=== PATIENT | female | born 1940 | race Caucasian/White ===

== ENCOUNTER 2023-12-23 07:56 | Inpatient (IN) ==
--- NOTE | 2023-12-11 13:25 | PAT Medication Instructions ---
Medication Instructions Date of Service December 11, 2023 Home Medications Brilinta 1 tab PO BID aspirin 81 mg capsule 81 mg PO QPM atorvastatin 40 mg tablet 40 mg PO HS cholecalciferol (vitamin D3) 1,250 mcg (50,000 unit) capsule 125 mcg PO Q7D clopidogrel 75 mg tablet 75 mg PO QPM cyanocobalamin (vitamin B-12) 1,000 mcg tablet (Vitamin B-12) 1,000 mcg PO QPM empagliflozin 25 mg tablet (Jardiance) 25 mg PO QPM latanoprost (PF) 0.005 % eye drops in a dropperette 1 drp ophthalmic (eye) QAM levothyroxine 75 mcg tablet 75 mcg PO QPM lisinopril 20 mg tablet 20 mg PO QPM semaglutide 0.25 mg or 0.5 mg (2 mg/3 mL) subcutaneous pen injector (Ozempic) 0.5 mg subcut Q7D timolol 0.5 % eye drops 1 drp ophthalmic (eye) HS venlafaxine 225 mg tablet,extended release 24 hr 225 mg PO QPM vitamin A-vitamin C-vit E-min tablet 1 tab PO DAILY Continue as directed cholecalciferol (vitamin D3) 1,250 mcg (50,000 unit) capsule 125 mcg PO Q7D (just do not take on morning of surgery) ASK your prescriber and surgeon Brilinta 1 tab PO BID aspirin 81 mg capsule 81 mg PO QPM clopidogrel 75 mg tablet 75 mg PO QPM STOP taking 2 weeks before surgery (or as soon as possible) vitamin A-vitamin C-vit E-min tablet 1 tab PO DAILY STOP taking 7 days before surgery semaglutide 0.25 mg or 0.5 mg (2 mg/3 mL) subcutaneous pen injector (Ozempic) 0.5 mg subcut Q7D STOP taking 3 days before surgery empagliflozin 25 mg tablet (Jardiance) 25 mg PO QPM Take morning of surgery OTHERWISE NOTHING TO EAT OR DRINK AFTER MIDNIGHT: latanoprost (PF) 0.005 % eye drops in a dropperette 1 drp ophthalmic (eye) QAM Take evening before surgery atorvastatin 40 mg tablet 40 mg PO HS cyanocobalamin (vitamin B-12) 1,000 mcg tablet (Vitamin B-12) 1,000 mcg PO QPM levothyroxine 75 mcg tablet 75 mcg PO QPM lisinopril 20 mg tablet 20 mg PO QPM timolol 0.5 % eye drops 1 drp ophthalmic (eye) HS venlafaxine 225 mg tablet,extended release 24 hr 225 mg PO QPM Other Notes If you have any questions please call us at [phone] or [phone] or [phone] or [phone]
--- NOTE | 2023-12-12 12:48 | Anesthesiology Consultation ---
Date of Service December 12, 2023 Assessment & Plan (1) Encounter for pre-operative examination: - awaiting echocardiogram. - 2/6 systolic murmur and patient reporting intermittent episodes of presyncope per pt. Denies symptoms in clinic, states is at baseline. She states has been t old of murmur years ago, denies any recent echocardiogram in the past 5-6 years and none available per PAT RN secretary book keeper. Patient and her were instructed to call 911 if change/worsening. They verbalized understanding and agreement. Case discussed in detail with Dr. Matthew who advised attempting to have echocardiogram completed prior to surgery. Surgeon's office notified of recommended attempt to have echocardiogram completed prior to surgery, Guillermo advised pt was in fact supposed to have echocardiogram 12/12/23 but did not show for appt. Their office is going to call her to re-schedule this prior to surgery. - check BSG am DOS. - will request Dr. Jorden Villegas PCP office note 10/2023, Kylie SORIA and Dr. Cardona cardiology office note 10/2023 PH Kylie. - semaglutide instructions: Patient informed at PAT visit to stop 7 days prior to surgery-voiced understanding. Patient advised to check with prescriber to see if alternative diabetic management changes recommended while holding semaglutide-if so, patient to call back to PAT to update chart and discuss if any further preop medication instructions needed. Chart Review Chart Review: Pending: Refer to Additional Notes / Consult section and Patient seen in Pre Admission Testing Teaching & Discussion Pre-Anesthesia Teaching/Discussion Notes: Instructed NPO after midnight before surgery, except medications with 15 cc of water. Medication instructions provided according to the PAT guidelines. History Surgery Operation Date: 12/23/23 08:00 Proposed Procedures p Right Transcarotid Artery Revascularization - Ricco Carvajal MD Height/Weight Height: 5 ft 3 in Weight: 71.8 kg Allergies Allergy/AdvReac Type Severity Reaction Status Date / Time No Known Allergies Allergy Verified 12/11/23 10:55 Medications Home Medications Medication Instructions Recorded Confirmed Last Taken Brilinta 1 tab PO BID 12/11/23 12/11/23 Unknown aspirin 81 mg capsule 81 mg PO QPM 12/11/23 12/11/23 Unknown atorvastatin 40 mg tablet 40 mg PO HS 12/11/23 12/11/23 Unknown cholecalciferol (vitamin D3) 1,250 125 mcg PO Q7D 12/11/23 12/11/23 Unknown mcg (50,000 unit) capsule clopidogrel 75 mg tablet 75 mg PO QPM 12/11/23 12/11/23 Unknown cyanocobalamin (vitamin B-12) 1,000 mcg PO QPM 12/11/23 12/11/23 Unknown 1,000 mcg tablet (Vitamin B-12) empagliflozin 25 mg tablet 25 mg PO QPM 12/11/23 12/11/23 Unknown (Jardiance) latanoprost (PF) 0.005 % eye drops 1 drp ophthalmic (eye) QAM 12/11/23 12/11/23 Unknown in a dropperette levothyroxine 75 mcg tablet 75 mcg PO QPM 12/11/23 12/11/23 Unknown lisinopril 20 mg tablet 20 mg PO QPM 12/11/23 12/11/23 Unknown semaglutide 0.25 mg or 0.5 mg (2 0.5 mg subcut Q7D 12/11/23 12/11/23 Unknown mg/3 mL) subcutaneous pen injector (Ozempic) timolol 0.5 % eye drops 1 drp ophthalmic (eye) HS 12/11/23 12/11/23 Unknown venlafaxine 225 mg tablet,extended 225 mg PO QPM 12/11/23 12/11/23 Unknown release 24 hr vitamin A-vitamin C-vit E-min 1 tab PO DAILY 12/11/23 12/11/23 Unknown tablet Past Medical History Medical History (Updated 12/12/23 @ 13:07 by Jina Dumont PA-C) Anxiety and depression Carotid artery stenosis high-grade stenosis (greater than 75%) involving the origin and proximal ri ght internal carotid artery with focal near complete occlusion/trace flow. Diabetes mellitus, type 2 NIDDM GERD (gastroesophageal reflux disease) infrequent Glaucoma History of COVID-19 09/2023, home test, not hosp; mild symptoms>resolved Hx of angiography [facility] [address] Hyperlipidemia Hypertension controlled, stable per pt Hypothyroidism Patient denies h/o stroke, seizures, heart attack, heart failure, blood clots/DVTs or blood transfusions. Exercise / Class Metabolic Activity II 4-5 Yardwork/Stairs/Walk up hill (denies chest discomfort or shortness of breath with 1 FOS) Past Surgical History Surgical History (Updated 12/12/23 @ 13:00 by Jina Dumont PA-C) [facility] History of surgical procedure on eye proper using laser Hx of cholecystectomy Hx of colonoscopy Hx of hysterectomy Past Anesthesia History No Hx of Anesthesia Complications and No Family Hx of Anesthesia Complications History of PONV No Hx of PONV and No Hx of Motion Sickness Social History Smoking Status: Never smoker Do You Dip or Chew Tobacco: No Hx Alcohol Use: Yes Alcohol type: beer alcohol intake frequency: holidays/special occasions only Hx Substance Use: No substance use type: does not use Review of Systems Snoring, denies witnessed apneas. Patient denies chest pain, shortness of breath, dyspnea on exertion, fever, chills, cough, wheezing, or palpitations. Physical Exam Vital Signs Vitals BP 112/73 P 62 TEMP 97.8 SP02 98% on RA RESP 17 Physical Patient resting comfortably in chair in no acute distress, alert and oriented, responding appropriately throughout visit Full cervical extension range of motion without pain TMD 3.5 finger breadths Mallampati Score 2 Dentition: edentulous, full upper and lower dentures Lungs: normal respiratory effort. Good air movement, clear throughout to ausc ultation, no adventitious breath sounds Cardiac: regular rate and rhythm, 2/6 systolic murmur Carotid arteries: negative bruit bilat Lab Results Anesthesia Preop Results Results Anesthesia Widget: WBC 6.00 K/ul (4.8-10.8) 12/12/23 Hgb 14.2 g/dl (12.0-16.0) 12/12/23 Hct 44.4 % (37.0-47.0) 12/12/23 Plt 227 K/uL (130-400) 12/12/23 Na 138 mmol/L (136-145) 12/12/23 K 4.2 mmol/L (3.5-5.1) 12/12/23 Cl 104 mmol/L (98-107) 12/12/23 CO2 29 mmol/L (21-32) 12/12/23 BUN 14 mg/dl (6-23) 12/12/23 Creat 0.69 mg/dl (0.6-1.2) 12/12/23 Glucose Level 122 mg/dl (70-99(Fasting)) H 12/12/23 PT 10.8 Seconds (9.0-12.0) 12/12/23 PTT 26 Seconds (21-31) 12/12/23 INR 1.0 (0.9-1.1) 12/12/23 HA1c 6.2 % (4.5-5.6) H 12/12/23 Blood Type O Positive 12/12/23 Antibody Screen NEGATIVE 12/12/23 Testing Electrocardiogram Date: 12/12/23 NSR, rate 60 bpm Chest X-Ray Date: 12/12/23 No acute cardiopulmonary findings. Other Testing Neck CTA 11/29/23 1. There is high-grade stenosis (greater than 75%) involving the origin and proximal right internal carotid artery with focal near complete occlusion/trace flow. 2. The remainder of the right internal carotid artery is patent. 3. There is no stenosis seen involving the left carotid system. 4. There is moderate focal stenosis at the origin of the right vertebral artery.
--- OUTSIDE RECORDS SUMMARY | 2023-12-23 08:16 | External Medical Summary | Continuity of Care Document ---
Author Name Unknown Organization [facility] [address] [facility] Address [address], [place] [id number] Care Team Providers Care Mathematics Improvement Teacher Name Role Phone Jorden Villegas Primary Care Physician [phone] Encounter [id number] Date(s): 12/16/23 - 12/16/23 [facility] [address], [address] [place] [address] [phone] Discharge Disposition: Home or Self Care Attending Physician: ALONA Lockhart Lynn Referring Physician: ALONA Lockhart Lynn Allergies, Adverse Reactions, Alerts No Known Allergies Medications aspirin 81 mg oral delayed release tablet Start: 06/26/23 10:13:00 EDT, 1 tab, PO, Daily Start Date: 06/26/23 Status: Ordered atorvastatin 40 mg oral tablet Start: 06/26/23 10:10:00 EDT, 1 tab, PO, Daily Start Date: 06/26/23 Status: Ordered Brilinta (ticagrelor) 90 mg oral tablet Start: 12/10/23 14:37:00 EST, 1 tab, PO, bid, Disp# 60 tab, Refills: 11, Pharmacy: [id number] Start Date: 12/10/23 Status: Ordered Jardiance 25 mg oral tablet Start: 06/26/23 10:10:00 EDT, 1 tab, PO, Daily, Disp# 30 tab Start Date: 06/26/23 Status: Ordered latanoprost 0.005% ophthalmic solution Start: 06/26/23 10:11:00 EDT, 1 drop, both eyes, qhs Start Date: 06/26/23 Status: Ordered levothyroxine 75 mcg (0.075 mg) oral tablet 1 tab, PO, Daily, TAKE 1 TABLET BY MOUTH ONCE DAILY Start Date: 06/26/23 Status: Ordered lisinopril 20 mg oral tablet TAKE 1 TABLET BY MOUTH ONCE DAILY Start Date: 06/26/23 Status: Ordered Ocuvite oral tablet Start: 06/26/23 10:13:00 EDT, 1 tab, PO, Daily Start Date: 06/26/23 Status: Ordered Ozempic (0.25 mg or 0.5 mg dose) 2 mg/3 mL subQ pen Start: 06/26/23 10:10:00 EDT, See Instructions, subQ, q7days, Disp# 3 mL, Inject 0.25 mg every 7 days X 4 weeks then increase to 0.5 mg SQ every 7 days., Supply Start Date: 06/26/23 Status: Ordered pantoprazole 20 mg oral delayed release tablet TAKE 1 TABLET BY MOUTH ONCE DAILY, PRN: dyspepsia Start Date: 12/10/23 Status: Ordered Plavix 75 mg oral tablet Start: 11/11/23 14:16:00 EST, 1 tab, PO, Daily, Disp# 30 tab, Refills: 11, Pharmacy: [id number] Start Date: 11/11/23 Status: Ordered timolol maleate 0.25% ophthalmic solution Start: 06/26/23 10:12:00 EDT, 1 drop, right eye, bid Start Date: 06/26/23 Status: Ordered venlafaxine 150 mg oral capsule, extended release Start: 06/26/23 10:10:00 EDT, 1 cap, PO, Daily Start Date: 06/26/23 Status: Ordered venlafaxine 75 mg oral capsule, extended release Start: 06/26/23 10:11:00 EDT, 1 cap, PO, Daily Start Date: 06/26/23 Status: Ordered Vitamin D3 1250 mcg (50,000 intl units) oral capsule Start: 12/10/23 13:45:00 EST, 1 cap, PO, q7days Start Date: 12/10/23 Status: Ordered vitamin E 200 intl units oral capsule Start: 06/26/23 10:13:00 EDT, 1 cap, PO, Daily Start Date: 06/26/23 Status: Ordered Problem List Condition Confirmation Course Effective Dates Status Health St atus Informant Aortoiliac stenosis Confirmed Active Carotid stenosis Confirmed Active Peripheral arterial disease Confirmed Active Results Radiology Reports * Exam Date Time Procedure Performing Provider Status 3/4/24 4:05 PM Echo TransTHORacic TTE Complete Jessica Varela; Final Notes: (Echo TransTHORacic TTE Complete) Reason For Exam: pre op for R TCAR Echo TransTHORacic TTE Complete Report Signatures Finalized by August Cleveland MD on 12/17/2023 10:36 AM Promoted to Fellow by Dr Gabe Deras DO on 12/17/2023 08:45 AM [place] Act 112: No-No further action needed Summary 1. Small, under-filled left ventricle and hyperdynamic systolic function with no regional wall motion abnormalities. 2. Ejection fraction as calculated by Biplane Simpsons method >70 %. 3. Normal right ventricular size and function. 4. Normal biatrial size. 5. No significant valvular abnormalities. 6. Normal estimated pulmonary artery pressure. 7. No prior studies for comparison. Patient Info Name: SANGEETHA RONQUILLO Age: 83 years : 1940 Gender: Female Ht: 160 cm Wt: 70 kg BSA: 1.79 m2 HR: 58 bpm BP: 130 / 72 mmHg Heart Rhythm: Sinus Bradycardia Technical Quality: Fair Exam Date: 12/16/2023 3:12 PM Exam Location: [facility] Patient Status: Outpatient Staff Ordering Physician: Marilyn Lockhart Business Insight And Analytics Manager: Jessica Varela RDCS, T Attending Physician: Marilyn Lockhart Study Info CPT 87320 - Indications Z01.810 - Preoperative Exam Procedure(s) * A complete two-dimensional, color flow and Doppler transthoracic echocardiogram was performed. Exam Type: Cardiac Basic Left Ventricle Small, under-filled left ventricle and hyperdynamic systolic function with no regional wall motion abnormalities. Ejection fraction as calculated by Biplane Simpsons method >70 %. No left ventricular hypertrophy. Inconclusive data to evaluate diastolic function due to MAC. Right Ventricle Normal right ventricular size and function. TAPSE is normal, 1.7 cm. Left Atrium Normal left atrial size. Right Atrium Normal right atrial size. Atrial Septum The interatrial septum is unremarkable. Aortic Valve Calcified, trileaflet aortic valve without stenosis or valvular insufficiency. Pulmonic Valve Structurally unremarkable pulmonic valve with no significant flow abnormalities. Estimated pulmonary arterial mean pressure 12 mmHg. Mitral Valve There is mitral annular calcification without significant stenosis and trace regurgitation. Tricuspid Valve Structurally normal tricuspid valve. Mild tricuspid regurgitation. Normal estimated pulmonary artery pressure. Pericardium/Pleural No significant pericardial effusion. Inferior Vena Cava Normal IVC size and inspiratory collapse. Aorta Normal size aortic root, ascending aorta and aortic arch. Left Ventricular Outflow Tract Name Value Normal LVOT 2D LVOT Diameter 2.0 cm LVOT Doppler LVOT Peak Velocity 1.48 m/s LVOT Peak Gradient 9 mmHg LVOT Mean Gradient 5 mmHg LVOT VTI 36.73 cm LVOT Stroke Volume 115.53 ml LVOT Stroke Volume Index 0.06 l/m2 LVOT Cardiac Output 6.70 l/min LVOT Cardiac Index 3.75 L/min/m2 Pulmonic Valve Name Value Normal PV 2D RVOT Diameter (2D) 1.6 cm 1.7-2.7 RVOT Doppler RVOT Peak Velocity 0.64 m/s PV Doppler PV Peak Velocity 0.71 m/s PV Regurgitation Doppler FL Peak Velocity 1.52 m/s Mitral Valve Name Value Normal MV Doppler MV Peak Velocity 1.40 m/s MV Peak Gradient 8 mmHg MV Mean Gradient 3 mmHg MV VTI 50.71 cm MV PHT 86 ms MV Area (Cont Eq VTI) 2.3 cm2 MV Area Index (Cont Eq VTI) 1.28 cm2/m2 MV Diastolic Function MV E Peak Velocity 1.34 m/s <=0.50 MV A Peak Velocity 1.43 m/s MV E/A 0.94 <=0.80 MV Decel Time 296 ms MV Annular TDI MV Septal s' Velocity 6.46 cm/s MV Septal e' Velocity 5.57 cm/s >=7.00 MV E/e' (Septal) 24.1 <=8.0 MV Lateral s' Velocity 6.87 cm/s MV Lateral e' Velocity 4.81 cm/s >=10.00 MV E/e' (Lateral) 27.87 <=8.00 MV e' Average 5.19 MV E/e' (Average) 25.97 <=14.00 Tricuspid Valve Name Value Normal TV Regurgitation Doppler TR Peak Velocity 2.42 m/s <=2.80 Estimated PAP/RSVP RA Pressure 3 mmHg <=5 PA Systolic Pressure 26 mmHg <40 PA Mean Pressure (FL Velocity) 12 mmHg TV Diastolic Function TV E Peak Velocity 0.45 m/s TV A Peak Velocity 0.17 m/s TV E/A 2.67 0.80-2.00 TV Decel Time 201 ms >=120 TV Annular TDI TV Lateral Nayla s' Velocity 10.9 cm/s 9.5-18.7 TV Lateral Nayla e' Velocity 14.4 cm/s <7.8 TV E/e' 3.13 2.00-6.00 Aorta Name Value Normal Ascending Aorta Sinus of Valsalva Diameter 2.5 cm 2.7-3.3 Sinus of Valsalva Index 1.38 cm/m2 1.60-2.00 Prox Asc Ao Diameter 3.0 cm 2.3-3.1 Prox Asc Ao Diameter Index 1.69 cm/m2 1.30-1.90 Thoracic Aorta Ao Arch Diameter 2.4 cm Desc Ao Peak Velocity 0.67 m/s Desc Ao Peak Gradient 2 mmHg Venous Name Value Normal IVC/SVC IVC Diameter (Insp 2D) 0.6 cm IVC Diameter (Exp 2D) 1.7 cm <=2.1 IVC Diameter Percent Change (2D) 65 % >=50 Aortic Valve Name Value Normal AV Doppler AV Peak Velocity 1.85 m/s <2.00 AV Peak Gradient 13 mmHg AV Area (Cont Eq Yoan) 2.5 cm2 AV Area Index (Cont Eq Yoan) 1.41 cm2/m2 AV V1/V2 Ratio 0.80 AV Regurgitation 2D LVOT Area 3.1 cm2 Ventricles Name Value Normal LV Dimensions 2D/MM IVS Diastolic Thickness (2D) 1.0 cm 0.6-0.9 LVID Diastole (2D) 3.7 cm 3.3-5.1 LVIW Diastolic Thickness (2D) 0.8 cm 0.6-0.9 LVID Systole (2D) 1.8 cm 2.2-3.5 LVOT Diameter 2.0 cm LV Fractional Shortening/Ejection Fraction 2D/MM LV Fractional Shortening (2D) 50 % 27-45 LV Diastolic Volume (4C MOD) 34 ml LV Diastolic Volume (2C MOD) 34 ml LV Diastolic Volume (BP MOD) 34 ml 46-106 LV Diastolic Volume Index (BP MOD) 18.82 ml/m2 29.00-61.00 LV Systolic Volume (BP MOD) 9 ml 14-42 LV Systolic Volume Index (BP MOD) 5.28 ml/m2 8.00-24.00 LV EF (BP MOD) 72 % 58-69 LV SV (BP MOD) 24.20 ml RV Dimensions 2D/MM RV Basal Diastolic Dimension 3.0 cm 2.5-4.1 TAPSE 1.7 cm >=1.7 Atria Name Value Normal LA Dimensions LA Area (4C) 16.6 cm2 LA Length (4C) 5.2 cm LA Area (2C) 19.2 cm2 LA Length (2C) 5.4 cm LA Volume (4C A-L) 45.37 ml LA Volume (2C A-L) 58.03 ml LA Volume (BP A-L) 53 ml 22-52 LA Volume Index (BP A-L) 29.46 ml/m2 <=34.00 RA Dimensions RA Area (4C) 9.2 cm2 <=18.0 Final Signed by:MD Cristofer, August Trivedi Signed (Electronic Signature):12/16/2023 3:12 p Social History Social History Type Response Smoking Status Never smoked cigaret soraida Sex Female Patient Care team information Care Team Personnel Name: MD Bakari, Jorden Clifford Position: Referring Member Role: Primary Care Provider Address: Address: [address] [place] [id number] Name: ALONA Lockhart Lynn Position: Physician Psychiatric Nurse Exempt - Vasc Surg Member Role: Lifetime Relationship Address: Address: [address] [place] [id number]
--- OUTSIDE RECORDS SUMMARY | 2023-12-23 08:17 | External Medical Summary | Continuity of Care Document ---
Author Name Unknown Organization [facility] [address] [facility] Address [address] [place], [place] [id number] Care Team Providers Care Morning Caregiver Name Role Phone Jorden Villegas Primary Care Physician [phone] [id number] Date(s): 12/10/23 - 12/10/23 [facility] [address], [address] [place] [address] [phone] Encounter Diagnosis Carotid stenosis(Discharge Diagnosis) - 12/10/23 Discharge Disposition: Home or Self Care Attending Physician: MD Carvajal Eugene J Referring Physician: MD Villegas James B Allergies, Adverse Reactions, Alerts No Known Allergies Assessment and Plan Extracted from: Title:Clinical Document Author:ALONA Lockhart Lynn Date:12/10/23 [facility] OUTPATIENT NOTE Name: SANGEETHA ALAS Patient Number: [id number] : 1940 Date of Service: 12/10/2023 Chief Complaint: _Follow-up for carotid stenosis HPI: _Mrs. Alas is an elderly female who presents to Dr. Carvajal vascular surgery clinic today for follow-up appointment after undergoing a CTA of her neck to evaluate her carotid disease. She has a remote history of undergoing a left carotid endarterectomy, and recently had a routine surveillance carotid ultrasound which indicated severe stenosis of her right ICA that had been undiagnosed. She was sent for CTA to better evaluate and returns today for those findings. She continues to deny any symptoms of cerebrovascular insufficiency including amaurosis, extremity weakness numbness or tingling, difficulty speaking or swallowing, facial droop, sudden onset confusion, other complaints. Her CTA of the neck performed at [facility] on 11/29/2023 demonstrates near occlusion of her right ICA, and a widely patent left carotid endarterectomy site. Current Home Meds: (Last Updated 12/10 14:38) aspirin (aspirin 81 mg oral delayed release tablet) 81 mg PO Daily atorvastatin (atorvastatin 40 mg oral tablet) 40 mg PO Daily cholecalciferol (Vitamin D3 1250 mcg (50,000 intl units) oral capsule) 1,250 mcg PO q7days clopidogrel (Plavix 75 mg oral tablet) 1 tab PO Daily empagliflozin (Jardiance 25 mg oral tablet) 25 mg PO Daily latanoprost ophthalmic (latanoprost 0.005% ophthalmic solution) 1 drop both eyes qhs Store intact bottles under refrigeration. Once opened, the container may be stored at room temperature for 6 weeks. Gerardo Crook 06/26 10:12 levothyroxine (levothyroxine 75 mcg (0.075 mg) oral tablet) 75 mcg PO Daily TAKE 1 TABLET BY MOUTH ONCE DAILY lisinopril (lisinopril 20 mg oral tablet) TAKE 1 TABLET BY MOUTH ONCE DAILY multivitamin with minerals (Ocuvite oral tablet) 1 tab PO Daily pantoprazole (pantoprazole 20 mg oral delayed release tablet) PRN: dyspepsia TAKE 1 TABLET BY MOUTH ONCE DAILY semaglutide (Ozempic (0.25 mg or 0.5 mg dose) 2 mg/3 mL subQ pen) subQ q7days Inject 0.25 mg every 7 days X 4 weeks then increase to 0.5 mg SQ every 7 days. ticagrelor (Brilinta (ticagrelor) 90 mg oral tablet) 90 mg PO bid timolol ophthalmic (timolol maleate 0.25% ophthalmic solution) 1 drop right eye bid venlafaxine (venlafaxine 150 mg oral capsule, extended release) 150 mg PO Daily venlafaxine (venlafaxine 75 mg oral capsule, extended release) 75 mg PO Daily vitamin E (vitamin E 200 intl units oral capsule) 200 Int_Unit PO Daily Allergies and Sensitivities: NKA Past Medical History: Problems: Carotid stenosis Aortoiliac stenosis Peripheral arterial disease OBJECTIVE Vitals: Last Updated 12/10/23 13:53 Date Temp BP Location Pulse RR SpO2 Pain 12/10/23 0 12/10/23 122/62 Right Arm 57 95 11/11/23 118/70 Left Arm 89 98 0 Vital Signs are the last 3 documented. No Orthostatic Data Available Height and Weight: Last Updated 06/26/23 10:28 Date BMI Wt(kg) Wt(lb) Method Ht(cm) (ft-in) Method 06/26/23 73.8 162 Standing Scale Heights and Weights are the last 3 documented. Physical Exam Constitutional: In general patient is a healthy-appearing well-nourished well-developed elderly female no distress. She is alert and oriented without any focal deficits. Her head is normocephalic and atraumatic. Her carotids do not demonstrate significant bruit. Her heart is regular, her lungs are decreased lightly but clear. ASSESSMENT: _ PLAN: _ 1 ) _carotid stenosis Patient is essentially asymptomatic from her carotid disease, however she does have a near occlusion of her right ICA which does put her at a significantly increased risk of having a CVA. Due to the findings on CTA, Dr. Carvajal recommends the patient consider undergoing a surgical intervention. We did discuss the options of carotid endarterectomy versus transcarotid artery revascularization, including the risks and benefits and alternatives of each. Patient elects to proceed with a right TCAR. The procedure risks benefits and alternatives were discussed at length with the patient. Her was also present. Patient expresses understanding and agreement to proceed. Patient has been taking Plavix for the past month, as prescribed by Dr. Carvajal, however, she underwent platelet function testing which demonstrated nonresponse to clopidogrel. We will change this medication to Brilinta 90 mg twice daily in preparation for her upcoming procedure. We discussed with the patient that she must take her 81 mg aspirin, Brilinta, and statin medications for at least 1 year postoperatively. We will have her undergo an echocardiogram, although the patient has no significant cardiac history. Patient is advised to call our office if she has any further questions. She is agreeable to this plan. Thank you for letting us participate in the care of this patient. I have personally spent_38__ minutes performing [id number] and [id number]-kp-face activities on this date of service.Time does not include separately reported services. Activities Include: _x_ review of the medical record _x_ obtaining a history _x_ physical exam/evaluation x__ review labs _x_ review radiology reports _x_ counseling/educating patient/family/caregiver __ discussion/referral to other healthcare professional x__ documenting care in the medical record __ independent interpretation of results _x_ communication of results to patient/family/caregiver _x_ coordination of care Medications aspirin 81 mg oral delayed release tablet Start: 06/26/23 10:13:00 EDT, 1 tab, PO, Daily Start Date: 06/26/23 Status: Ordered atorvastatin 40 mg oral tablet Start: 06/26/23 10:10:00 EDT, 1 tab, PO, Daily Start Date: 06/26/23 Status: Ordered Brilinta (ticagrelor) 90 mg oral tablet Start: 12/10/23 14:37:00 EST, 1 tab, PO, bid, Disp# 60 tab, Refills: 11, Pharmacy: [id number] Start Date: 12/10/23 Status: Ordered Jardiance 25 [...] Daily, Disp# 30 tab, Refills: 11, Pharmacy: [id number] Start Date: 11/11/23 Status: [...] PO, Daily Start Date: 06/26/23 Status: Ordered Mental Status 12/10/23 Barriers to Learning one year None evide nt Mandatory Health Literacy Documentation Yes Health Literacy Communication Barriers N ever Primary Language Canadian Problem List Condition Confirmation Course Effective Dates Status Health St atus Informant Aortoiliac stenosis Confirmed Active Carotid stenosis Confirmed Active Peripheral arterial disease Confirmed Active Diagnosis Diagnosis Type Effective Dates Health Status Cl inical Service Informant Carotid stenosis Discharge Diagnosis 12/10/23 Vital Signs Most recent to oldest [Reference Range]: 1 Heart Rate 57 bpm (12/10/23 1:49 PM) Blood Pressure 122/62mmHg (12/10/23 1:49 PM) Cuff Pulse Pressure 60 mmHg (12/10/23 1:49 PM) BP Location # 1 Right Arm (12/10/23 1:49 PM) Social History Social History Type Response Smoking Status Never smoked cigaret soraida Sex Female HVI Outpt Note * ALONA Lockhart Lynn: PERFORM Event Display: HVI Outpt Note Authored Date: [id number] [facility] OUTPATIENT NOTE Name: SANGEETHA ALAS Patient Number: [id number] : 1940 Date of Service: 12/10/2023 Chief Complaint: _Follow-up for carotid stenosis HPI: _Mrs. Alas is an elderly female who presents to Dr. Carvajal vascular surgery clinic today forfollow-up appointment after undergoing a CTA of her neck to evaluate her carotid disease. She has aremote history of undergoing a left carotid endarterectomy, and recently had a routine surveillancecarotid ultrasound which indicated severe stenosis of her right ICA that had been undiagnosed. She was sent for CTA to better evaluate and returns today for those findings. She continues to deny any symptoms of cerebrovascular insufficiency including amaurosis, extremity weakness numbness or tingling, difficulty speaking or swallowing, facial droop, sudden onset confusion, other complaints. Her CTA of the neck performed at [facility] on 11/29/2023 demonstrates near occlusion of her right ICA, and a widely patent left carotid endarterectomy site. Current Home Meds: (Last Updated 12/10 14:38) aspirin (aspirin 81 mg oral delayed release tablet) 81 mg PO Daily atorvastatin (atorvastatin 40 mg oral tablet) 40 mg PO Daily cholecalciferol (Vitamin D3 1250 mcg (50,000 intl units) oral capsule) 1,250 mcg PO q7days clopidogrel (Plavix 75 mg oral tablet) 1 tab PO Daily empagliflozin (Jardiance 25 mg oral tablet) 25 mg PO Daily latanoprost ophthalmic (latanoprost 0.005% ophthalmic solution) 1 drop both eyes qhs Store intact bottles under refrigeration. Once opened, the container may be stored at room temperature for 6 weeks. Gerardo Crook 06/26 10:12 levothyroxine (levothyroxine 75 mcg (0.075 mg) oral tablet) 75 mcg PO Daily TAKE 1 TABLET BY MOUTH ONCE DAILY lisinopril (lisinopril 20 mg oral tablet) TAKE 1 TABLET BY MOUTH ONCE DAILY multivitamin with minerals (Ocuvite oral tablet) 1 tab PO Daily pantoprazole (pantoprazole 20 mg oral delayed release tablet) PRN: dyspepsia TAKE 1 TABLET BY MOUTHONCE DAILY semaglutide (Ozempic (0.25 mg or 0.5 mg dose) 2 mg/3 mL subQ pen) subQ q7days Inject 0.25 mg every 7 days X 4 weeks then increase to 0.5 mg SQ every 7 days. ticagrelor (Brilinta (ticagrelor) 90 mg oral tablet) 90 mg PO bid timolol ophthalmic (timolol maleate 0.25% ophthalmic solution) 1 drop right eye bid venlafaxine (venlafaxine 150 mg oral capsule, extended release) 150 mg PO Daily venlafaxine (venlafaxine 75 mg oral capsule, extended release) 75 mg PO Daily vitamin E (vitamin E 200 intl units oral capsule) 200 Int_Unit PO Daily Allergies and Sensitivities: NKA Past Medical History: Problems: Carotid stenosis Aortoiliac stenosis Peripheral arterial disease OBJECTIVE Vitals: Last Updated 12/10/23 13:53 Date Temp BP Location Pulse RR SpO2 Pain 12/10/23 0 12/10/23 122/62 Right Arm 57 95 11/11/23 118/70 Left Arm 89 98 0 Vital Signs are the last 3 documented. No Orthostatic Data Available Height and Weight: Last Updated 06/26/23 10:28 Date BMI Wt(kg) Wt(lb) Method Ht(cm) (ft-in) Method 06/26/23 73.8 162 Standing Scale Heights and Weights are the last 3 documented. Physical Exam Constitutional: In general patient is a healthy-appearing well-nourished well- developed elderly female no distress. She is alert and oriented without any focal deficits. Her head is normocephalic andatraumatic. Her carotids do not demonstrate significant bruit. Her heart is regular, her lungs are decreased lightly but clear. ASSESSMENT: _ PLAN: _ 1 ) _carotid stenosis Patient is essentially asymptomatic from her carotid disease, however she does have a near occlusion of her right ICA which does put her at a significantly increased risk of having a CVA. Due to the findings on CTA, Dr. Carvajal recommends the patient consider undergoing a surgical intervention. We did discuss the options of carotid endarterectomy versus transcarotid artery revascularization, including the risks and benefits and alternatives of each. Patient elects to proceed with a right TCAR. The procedure risks benefits and alternatives were discussed at length with the patient. Her was also present. Patient expresses understanding and agreement to proceed. Patient has been taking Plavix for the past month, as prescribed by Dr. Carvajal, however, she underwent platelet function testing which demonstrated nonresponse to clopidogrel. We will change this medication to Brilinta 90 mgtwice daily in preparation for her upcoming procedure. We discussed with the patient that she must take her 81 mg aspirin, Brilinta, and statin medications for at least 1 year postoperatively. We will have her undergo an echocardiogram, although the patient has no significant cardiac history. Patient is advised to call our office if she has any further questions. She is agreeable to this plan. Thank you for letting us participate in the care of this patient. I have personally spent_38__ minutes performing [id number]-[id number] and uyg-vqik-qq-face activities on this date of service.Time does not include separately reported services. Activities Include: _x_ review of the medical record _x_ obtaining a history _x_ physical exam/evaluation x__ review labs _x_ review radiology reports _x_ counseling/educating patient/family/caregiver __ discussion/referral to other healthcare professional x__ documenting care in the medical record __ independent interpretation of results _x_ communication of results to patient/family/caregiver _x_ coordination of care Electronic Signature on File CC: Jorden Villegas MD [address] [place] [id number] * Electronically Reviewed/Signed by: Marilyn Lockhart PA-C Author Signature Dt/Tm:12/10/2023 03:53 PM [facility] [address] [place] 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
[2023-12-23] MEDS: ASPIRIN 81 MG ECTAB PO STA (08:35)
[2023-12-23] MEDS: SODIUM CHLORIDE 0.9% 1,000 ML IV SCH (08:36)
[2023-12-23 08:56] LABS: BUN Creatinine Ratio 18.5 (10-20); Calcium 10.1 mg/dl (8.6-10.3); Creatinine Clr Calc Pharmacy 63.4 ml/min; Est GFR (African American) 95.8 ml/min; Est GFR (Non-African American) 82.7 ml/min; Potassium 3.9 mmol/L (3.5-5.1)
[2023-12-23] MEDS ORDERED: LABETALOL HCL IV 5 MG/ML 20ML IV PRN (09:04)
[2023-12-23] MEDS ORDERED: ATROPINE SULFATE 0.1 MG/ML 10ML SYR IV PRN (09:04)
[2023-12-23] MEDS ORDERED: NALOXONE HCL 0.4 MG/1 ML VIAL/CARP IV PRN (09:04)
[2023-12-23] MEDS ORDERED: ONDANSETRON INJ 2 MG/ML 2 ML VIAL IV PRN (09:04)
[2023-12-23] MEDS ORDERED: FLUMAZENIL 0.1 MG/1 ML 10 ML VIAL IV PRN (09:04)
[2023-12-23] MEDS ORDERED: fentaNYL citrate PF 100 MCG/2 ML VIAL IV PRN (09:04)
[2023-12-23] MEDS ORDERED: PROMETHAZINE HCL 6.25 MG in SODIUM CHLORIDE 0.9% 50 ML IV PRN (09:04)
--- NOTE | 2023-12-23 09:21 | History & Physical Report ---
Date of Service December 23, 2023 History of Present Illness Primary Care Provider: Jorden Villegas Name: SANGEETHA ALAS Patient Number: [id number] : 1940 Date of Service: 12/10/2023 Chief Complaint: _Follow-up for carotid stenosis HPI: _Mrs. Alas is an elderly female who presents to Dr. Carvajal vascular surgery clinic today for follow-up appointment after undergoing a CTA of her neck to evaluate her carotid disease. She has a remote history of undergoing a left carotid endarterectomy, and recently had a routine surveillance carotid ultrasound which indicated severe stenosis of her right ICA that had been undiagnosed. She was sent for CTA to better evaluate and returns today for those findings. She continues to deny any symptoms of cerebrovascular insufficiency including amaurosis, extremity weakness numbness or tingling, difficulty speaking or swallowing, facial droop, sudden onset confusion, other complaints. Her CTA of the neck performed at [facility] on 11/29/2023 demonstrates near occlusion of her right ICA, and a widely patent left carotid endarterectomy site. Current Home Meds: (Last Updated 12/10 14:38) aspirin (aspirin 81 mg oral delayed release tablet) 81 mg PO Daily atorvastatin (atorvastatin 40 mg oral tablet) 40 mg PO Daily cholecalciferol (Vitamin D3 1250 mcg (50,000 intl units) oral capsule) 1,250 mcg PO q7days clopidogrel (Plavix 75 mg oral tablet) 1 tab PO Daily empagliflozin (Jardiance 25 mg oral tablet) 25 mg PO Daily latanoprost ophthalmic (latanoprost 0.005% ophthalmic solution) 1 drop both eyes qhs Store intact bottles under refrigeration. Once opened, the container may be stored at room temperature for 6 weeks. Gerardo Crook 06/26 10:12 levothyroxine (levothyroxine 75 mcg (0.075 mg) oral tablet) 75 mcg PO Daily TAKE 1 TABLET BY MOUTH ONCE DAILY lisinopril (lisinopril 20 mg oral tablet) TAKE 1 TABLET BY MOUTH ONCE DAILY multivitamin with minerals (Ocuvite oral tablet) 1 tab PO Daily pantoprazole (pantoprazole 20 mg oral delayed release tablet) PRN: dyspepsia TAKE 1 TABLET BY MOUTH ONCE DAILY semaglutide (Ozempic (0.25 mg or 0.5 mg dose) 2 mg/3 mL subQ pen) subQ q7days Inject 0.25 mg every 7 days X 4 weeks then increase to 0.5 mg SQ every 7 days. ticagrelor (Brilinta (ticagrelor) 90 mg oral tablet) 90 mg PO bid timolol ophthalmic (timolol maleate 0.25% ophthalmic solution) 1 drop right eye bid venlafaxine (venlafaxine 150 mg oral capsule, extended release) 150 mg PO Daily venlafaxine (venlafaxine 75 mg oral capsule, extended release) 75 mg PO Daily vitamin E (vitamin E 200 intl units oral capsule) 200 Int_Unit PO Daily Allergies and Sensitivities: NKA Past Medical History: Problems: Carotid stenosis Aortoiliac stenosis Peripheral arterial disease OBJECTIVE Vitals: Last Updated 12/10/23 13:53 Date Temp BP Location Pulse RR SpO2 Pain 12/10/23 0 12/10/23 122/62 Right Arm 57 95 11/11/23 118/70 Left Arm 89 98 0 Vital Signs are the last 3 documented. No Orthostatic Data Available Height and Weight: Last Updated 06/26/23 10:28 Date BMI Wt(kg) Wt(lb) Method Ht(cm) (ft-in) Method 06/26/23 73.8 162 Standing Scale Heights and Weights are the last 3 documented. Physical Exam Constitutional: In general patient is a healthy-appearing well-nourished well- developed elderly female no distress. She is alert and oriented without any focal deficits. Her head is normocephalic and atraumatic. Her carotids do not demonstrate significant bruit. Her heart is regular, her lungs are decreased lightly but clear. ASSESSMENT: _ PLAN: _ 1 ) _carotid stenosis Patient is essentially asymptomatic from her carotid disease, however she does have a near occlusion of her right ICA which does put her at a significantly increased risk of having a CVA. Due to the findings on CTA, Dr. Carvajal recommends the patient consider undergoing a surgical intervention. We did discuss the options of carotid endarterectomy versus transcarotid artery revascularization, including the risks and benefits and alternatives of each. Patient elects to proceed with a right TCAR. The procedure risks benefits and alternatives were discussed at length with the patient. Her was also present. Patient expresses understanding and agreement to proceed. Patient has been taking Plavix for the past month, as prescribed by Dr. Carvajal, however, she underwent platelet function testing which demonstrated nonresponse to clopidogrel. We will change this medication to Brilinta 90 mg twice daily in preparation for her upcoming procedure. We discussed with the patient that she must take her 81 mg aspirin, Brilinta, and statin medications for at least 1 yea r postoperatively. We will have her undergo an echocardiogram, although the patient has no significant cardiac history. Patient is advised to call our office if she has any further questions. She is agreeable to this plan. Thank you for letting us participate in the care of this patient. I have personally spent_38__ minutes performing pprz-pn-ovdu and ecu-ekah-lc-face activities on this date of service.Time does not include separately reported services. Activities Include: _x_ review of the medical record _x_ obtaining a history _x_ physical exam/evaluation x__ review labs _x_ review radiology reports _x_ counseling/educating patient/family/caregiver __ discussion/referral to other healthcare professional x__ documenting care in the medical record __ independent interpretation of results _x_ communication of results to patient/family/caregiver _x_ coordination of care Signature Line Electronic Signature on File CC: Jorden Villegas MD [facility] [id number] * Electronically Reviewed/Signed by: Marilyn Lockhart PA-C Author Signature Dt/Tm:12/10/2023 03:53 PM [facility] [place], [address] [place] [address] LM Result Type: HVI Outpt Note Date of Service: December 10, 2023 15:40 EST Authorization Status: Final Author or Import Date: ALONA Lockhart Lynn on December 10, 2023 15:53 EST Verified By: ALONA Lockhart Lynn on December 10, 2023 15:53 EST Encounter info: [id number], [facility], Clinic, 12/10/2023 - 12/10/2023 Allergies Allergy/AdvReac Type Severity Reaction Status Date / Time No Known Allergies Allergy Verified 12/23/23 08:38 Home Medications Medication Instructions Recorded Confirmed Type Brilinta 1 tab PO BID 12/11/23 12/23/23 History aspirin 81 mg capsule 81 mg PO QPM 12/11/23 12/23/23 History atorvastatin 40 mg tablet 40 mg PO HS 12/11/23 12/23/23 History cholecalciferol (vitamin D3) 1,250 125 mcg PO Q7D 12/11/23 12/23/23 History mcg (50,000 unit) capsule clopidogrel 75 mg tablet 75 mg PO QPM 12/11/23 12/23/23 History cyanocobalamin (vitamin B-12) 1,000 mcg PO QPM 12/11/23 12/23/23 History 1,000 mcg tablet (Vitamin B-12) empagliflozin 25 mg tablet 25 mg PO QPM 12/11/23 12/23/23 History (Jardiance) latanoprost (PF) 0.005 % eye drops 1 drp ophthalmic (eye) QAM 12/11/23 12/23/23 History in a dropperette levothyroxine 75 mcg tablet 75 mcg PO QPM 12/11/23 12/23/23 History lisinopril 20 mg tablet 20 mg PO QPM 12/11/23 12/23/23 History semaglutide 0.25 mg or 0.5 mg (2 0.5 mg subcut Q7D 12/11/23 12/23/23 History mg/3 mL) subcutaneous pen injector (Ozempic) timolol 0.5 % eye drops 1 drp ophthalmic (eye) HS 12/11/23 12/23/23 History venlafaxine 225 mg tablet,extended 225 mg PO QPM 12/11/23 12/23/23 History release 24 hr vitamin A-vitamin C-vit E-min 1 tab PO DAILY 12/11/23 12/23/23 History tablet (Ocutabs tablet) Past Med/Surg History Medical History GERD (gastroesophageal reflux disease) infrequent Carotid artery stenosis high-grade stenosis (greater than 75%) involving the origin and proximal right internal carotid artery with focal near complete occlusion/trace flow. Hx of angiography [facility] History of COVID-19 09/2023, home test, not hosp; mild symptoms>resolved Anxiety and depression Hypothyroidism Diabetes mellitus, type 2 NIDDM Hyperlipidemia Hypertension controlled, stable per pt Glaucoma Surgical History Hx of hysterectomy Hx of colonoscopy Hx of cholecystectomy History of surgical procedure on eye proper using laser History of carotid endarterectomy left, prior to 2019, [facility] Social History Smoking Status: Never smoker Second Hand Exposure: No; Do You Dip or Chew Tobacco: No; Tobacco Cessation Education Requested by Patient: No Hx Alcohol Use: Yes Alcohol type: beer Hx Substance Use: No Preferred Language: Persian Communication Ability: Effective Putty Mixer And Applier Required: No Beliefs That Will Affect Care: None Current Living Situation: Spouse Other Information That Helps Us Care for You: No Feels Safe at Home: Yes Safety Concerns: Feels Safe At This Time Assistive Devices: Denture - Upper, Denture - Lower, Glasses and Hearing Aid - Bilateral Results & Data Vital Signs (Past 12 Hours) Vital Signs Temp Pulse Resp BP BP Pulse Ox O2 Del Method 12/23/23 09:07 159/88 H 12/23/23 08:43 36.6 C 92 H 20 186/89 H 93 Room Air
[2023-12-23] MEDS ORDERED: PROPOFOL IV EMULSION 10 MG/ML 20 ML VIAL IV ONE (09:23)
[2023-12-23] MEDS ORDERED: fentaNYL citrate PF 100 MCG/2 ML VIAL ONE ×2 (09:24→11:14)
[2023-12-23] MEDS ORDERED: MIDAZOLAM HCL 1 MG/ML 2ML VIAL ONE (09:25)
--- NOTE | 2023-12-23 09:28 | History & Physical Bridge Note ---
Date of Service December 23, 2023 History & Physical Bridge Note I have examined the patient, reviewed the History & Physical and in the interval since the performance of the History & Physical I have noted the following changes of clinical significance: no changes noted
[2023-12-23] MEDS: CEFAZOLIN 2,000 MG/15 ML SYR IV SCH (11:06)
[2023-12-23] MEDS ORDERED: CISATRACURIUM BESYLATE IV SOLN 2 MG/ML 10 ML VIAL IV ONE (11:13)
[2023-12-23] MEDS ORDERED: GLYCOPYRROLATE 0.2 MG/ML VIAL ONE ×2 (11:44→12:33)
[2023-12-23] MEDS ORDERED: HEPARIN SOD (PORCINE) 1000 UNIT/ML ONE (11:44)
[2023-12-23] MEDS ORDERED: PHENYLEPHRINE 100MCG/ML 10ML SYR IV ONE (11:44)
[2023-12-23] MEDS ORDERED: ePHEDrine sulfate 50 MG/5 ML SYR ONE (11:44)
[2023-12-23] MEDS ORDERED: PROTAMINE SULFATE 10 MG/ML 5 ML VIAL IV ONE (12:14)
[2023-12-23] MEDS: VISIPAQUE IV ONE (12:16)
[2023-12-23] MEDS ORDERED: NEOSTIGMINE METHYLSULFATE 1 MG/ML 10ML VIAL ONE (12:21)
[2023-12-23] MEDS: BUPIVACAINE/EPINEPHRINE 0.5% MPF 1:200,000 30 ML VIAL INFIL ONE (12:22)
--- NOTE | 2023-12-23 12:32 | Procedure Note ---
Angiogram Post Procedure Fluoroscopy Time (minutes): 15 Radiation (mGy): 100 Contrast: 27 Post Operative Report Pre & Post Diagnosis Operation Date: 12/23/23 10:05 Pre-Op Diagnosis: Right Carotid Artery Stenosis Post-Op Diagnosis: Right Carotid Artery Stenosis I identified the patient and participated in the time-out.: Yes Procedure Operation Date: 12/23/23 10:05 Actual Procedures p Right Transcarotid Artery Revascularization(Right), ultrasound localization of left common femoral vein - Ricco Carvajal MD Surgeon Ricco Carvajal MD Chlorine Cells Operator Jacque,PAC Estimated Blood Loss 50 Findings Consistent with Post-Op Diagnosis Specimens none Anesthesia Type General Complications none Disposition Accompanied Patient To Recovery: No Disposition: Recovery Room Indications This is an 83-year-old white female who was found to have severe stenosis of the right internal carotid artery. Intervention was recommended. We went over the risk option benefits of endarterectomy versus TCAR. She she chose to go ahead with a TCAR procedure. I have discussed the risks options and benefits of the procedure with the patient. The patient understands the risks options and benefits and agrees to the procedure. Description of Procedure The patient was taken to the operating room and placed in supine position. After general anesthesia was accomplished the groins and right side of the neck and chest were prepped and draped in a sterile manner. Timeout was performed and the patient was identified. A transverse incision was made just above the clavicle between the heads of the sternocleidomastoid. This is carried down to where the common carotid artery was identified. It was isolated. It was slung with umbilical tape. Next the U stitch was placed in the common carotid artery with a 5-0 Prolene suture. Patient was given 8000 heparin at that time. Ultrasound was then used to localize the left common femoral vein. The vein was patent and compressed easily. Under ultrasound guidance the left common femoral vein was punctured and the venous sheath was inserted. This was aspirated and flushed with heparinized saline. ACT at that time was 342. Using micropuncture technique the common carotid artery was punctured. The micro sheath was inserted to 3 cm. Injection was then done showing the bifurcation. There was a significant lesion seen at the origin of the internal carotid artery on the right side as well as another isolated narrowing slightly above on the internal carotid artery. There is also severe stenosis present on the common carotid artery just before the bifurcation.. We then inserted the J-wire and left it short of the lesion. The micro sheath was removed and the TCAR sheath was inserted. Once it was in place and held against the artery it was sutured to the chest wall and the incision edge. We then flushed the tubing appropriately. The venous return to was clamped onto the TCAR sheath. It was flushed through and then attached to the venous inflow sheath in the left groin. Sheath was checked for flow. The saline cleared nicely. The common carotid artery was then clamped. Flow reversal was instituted. We inserted a 4 x 35 balloon backloaded on the wire. The wire was passed through the lesion into the petrous portion of the internal carotid. The 4 balloon was then advanced to the lesion. Lesion was then predilated with a 4 mm balloon. Balloon was removed. We then inserted the 8 x 40 stent. This was deployed across the lesion without difficulty. The catheter was removed. Due to calcification of the plaque we did a postdilatation with a 4.5 x 25 mm balloon. The carotid was allowed to go 2 minutes with flow reversal. Completion angiogram was done at that time which showed a widely patent carotid stent however there was what appeared to be a dissection with some minimal flow. It looks like there was a reentry point just beyond the end of the stent. We decided that time to stent across the reentry point to decrease the chance of further dissection postoperatively. We then inserted a 6 x 30 stent. This was deployed distal to the previously placed stent overlapping more than half of the stent into the previously placed stent. This was then ballooned with the 4.5 x 25 balloon. Another arteriogram was then done which showed the stent to be widely patent with good flow. There is no further flow seen in the dissection plane.. At that point the common carotid artery was unclamped. The venous return tubing was clamped and removed from the TCAR sheath. The blood was allowed to flow back into the venous system. Once this was completed the sheath was pulled from the groin and pressure was applied. The TCAR sheath was then removed and the 5-0 Prolene suture securely tied. Hemostasis was noted of the puncture site. Wound was irrigated with Ancef solution. Adequate hemostasis was obtained of the wound. Once this was noted the wound was closed in usual fashion using a 3-0 Vicryl suture for the subcutaneous layer and a 4-0 subcuticular Vicryl suture for the skin edges. Dermabond was used for dressing.The patient left the operation room in satisfactory condition and tolerated the procedure well. All needle and sponge counts were correct at the end of the procedure. Marilyn Lockhart Pac assisted due to lack of resident availability and was necessary for positioning, draping, retraction, wound closure deep layers, subcutaneous tissue, and skin closure and was necessary for assisting with the case. I attest to the content of the Intraoperative Record and any orders documented therein. Any exceptions are noted below.
[2023-12-23] MEDS: ePHEDrine sulfate 50 MG/ML AMP IV PRN (13:19)
--- NOTE | 2023-12-23 14:12 | Anesthesiology Progress Note ---
Date of Service December 23, 2023 Anesthesia Post Procedure Vital Signs Vital Signs: Temp Pulse Resp BP BP Pulse Ox O2 Del Method 12/23/23 14:05 59 L 14 115/46 L 115/40 L 96 Room Air 12/23/23 13:55 50 L 12 80/40 L 85/32 L 95 Room Air 12/23/23 13:45 48 L 16 94/42 L 100/38 L 95 Oxymask 12/23/23 13:35 48 L 18 88/38 L 86/30 L 96 Oxymask 12/23/23 13:25 48 L 18 75/38 L 68/25 L 95 Oxymask 12/23/23 13:15 67 18 107/69 115/41 L 99 Oxymask 12/23/23 13:05 68 16 135/61 140/48 L 100 Oxymask 12/23/23 12:58 36.6 C 48 L 14 71/35 L 99 Oxymask 12/23/23 09:07 159/88 H 12/23/23 08:43 36.6 C 92 H 20 186/89 H 93 Room Air O2 Flow Rate 12/23/23 14:05 12/23/23 13:55 12/23/23 13:45 3 12/23/23 13:35 3 12/23/23 13:25 3 12/23/23 13:15 3 12/23/23 13:05 6 12/23/23 12:58 6 12/23/23 09:07 12/23/23 08:43 Transfer of Care Handoff Completed per policy Notes Mental Status: alert / awake / arousable Patient Amnestic to Procedure: Yes Nausea / Vomiting: adequately controlled Pain: adequately controlled Airway Patency, RR, SpO2: stable & adequate BP & HR: see Notes below (labile BP and HR 2ndary to baroreceptor dysfunction from surgery) Hydration State: stable & adequate Anesthetic Complications: no major complications apparent
[2023-12-23] MEDS ORDERED: oxyCODONE/ACETAMINOPHEN 5mg/325mg TAB PO PRN (14:26)
[2023-12-23] MEDS ORDERED: MoRPHine SULFATE 4 MG/ML 1 ML CARP\\VIAL IV PRN (14:26)
--- NOTE | 2023-12-23 14:49 | Critical Care Consultation ---
Date of Consultation December 23, 2023 Assessment & Plan (1) Carotid artery disease: (2) Diabetes mellitus, type 2: (3) Hypothyroidism: (4) Hyperlipidemia: (5) Hypertension: (6) Glaucoma: Plan Reason Critically Ill: 83-year-old female with a significant past medical history of diabetes, hypertension, hyperlipidemia, and carotid artery stenosis who successfully underwent RIGHT-sided TCAR procedure. Patient to be monitored in the ICU status post vascular intervention. NEURO - * CAM ICU: NEGATIVE * Monitor neurochecks per unit policy status post TCAR procedure. CARDIAC/VASCULAR - * Status post RIGHT-sided TCAR: * Monitor incision site for any changes. * Monitor for signs/symptoms of bleeding status post vascular intervention. * Management per vascular surgery. * Hypertension/hyperlipidemia: * Continue with outpatient medications when appropriate. * Monitor on telemetry. RESPIRATORY - * No history of pulmonary disease. * Saturating well on room air. GI/NUTRITION - * Progress diet as tolerated. RENAL/LYTES - * No significant electrolyte derangements. * IVF: LR at 125 mL/h -can titrate down when tolerating p.o. - * No immediate concerns at this time. ENDO - * DMII: * BSGs per unit protocol. ISS --> gtt per unit policy. * Hypothyroid: * Continue with home dosing. HEME - * Stable H&H. * Monitor for s/s bleeding s/p vascular intervention. ID - * No concern for infection. LINES/IV ACCESS - * PIVs x2 * RIGHT Radial arterial line DVT PROPHYLAXIS - * Per vascular surgery. * SCDs Please note the above document was generated using voice recognition software. It may contain grammatical, syntax or spelling errors.Any formal questions or concerns about the content, text or information contained within the body of this dictation should be directly addressed to the provider for clarification. Supervising Physician Co-Signing Physician Notes I saw and evaluated the patient with Adrián Mckenzie PA-C, and agree with findings and plan as documented in the note. 83-year-old female with a significant past medical history of diabetes, hypertension, hyperlipidemia, and carotid artery stenosis who successfully underwent RIGHT-sided TCAR procedure At the time of examination patient's map was in the high 60s to low 70s. Heart rate in the mid 60s. She was not in any distress Denied any chest pain. No shortness of breath. Mild headache, blurry vision Was asking to have some coffee. Constitutional: No acute distress HEENT: EOMI, PERRLA, hard to hear Respiratory system: Good air entry bilaterally, no wheeze, no rhonchi, no crackles CVS: S1-S2 positive, no murmurs or gallops Abdomen: Soft, nontender, nondistended, positive bowel sounds x4 Extremities: +2 pulses bilaterally radialis/ dorsalis pedis, no cyanosis, no edema, obese Neuro: Awake alert oriented x3 Psych: Normal mood and affect G/U: No Hamilton --Prophylaxis VTE: IPC GI: None Lines: Right radial, peripheral Diet: Cardiac Plan: Strict in and out Continue with neurochecks Monitor H&H Pain management Incentive spirometry will beneficial Please note the above document was generated using voice recognition software. It may contain grammatical, syntax or spelling errors.Any formal questions or concerns about the content, text or information contained within the body of this dictation should be directly addressed to the provider for clarification. History of Present Illness Reason for Consultation: post RIGHT sided TCAR Requesting Physician: Dr. Carvajal Attending Physician: Ricco Carvajal MD History of Present Illness Patient is an 83-year-old female with a significant past medical history of diabetes, hyperlipidemia, and carotid artery disease status post prior LEFT- sided TCAR who presents to the ICU post RIGHT-sided TCAR performed today. Patient underwent TCAR procedure without significant blood loss. The patient did well and was extubated. She had a slight episode of hypotension in the PACU, however this quickly recovered. Currently, she complains of some dry throat soreness from intubation. Otherwise, she denies complaints of visual disturbances, slurred speech, facial droop, unilateral weakness/numbness, chest pain, palpitations, or vomiting. She does complain of a mild frontal headache, but reports that she does not have her glasses right now. Allergies Allergy/AdvReac Type Severity Reaction Status Date / Time No Known Allergies Allergy Verified 12/23/23 08:38 Home Medications Medication Instructions Recorded Confirmed Type Brilinta 1 tab PO BID 12/11/23 12/23/23 History aspirin 81 mg capsule 81 mg PO QPM 12/11/23 12/23/23 History atorvastatin 40 mg tablet 40 mg PO HS 12/11/23 12/23/23 History cholecalciferol (vitamin D3) 1,250 125 mcg PO Q7D 12/11/23 12/23/23 History mcg (50,000 unit) capsule clopidogrel 75 mg tablet 75 mg PO QPM 12/11/23 12/23/23 History cyanocobalamin (vitamin B-12) 1,000 mcg PO QPM 12/11/23 12/23/23 History 1,000 mcg tablet (Vitamin B-12) empagliflozin 25 mg tablet 25 mg PO QPM 12/11/23 12/23/23 History (Jardiance) latanoprost (PF) 0.005 % eye drops 1 drp ophthalmic (eye) QAM 12/11/23 12/23/23 History in a dropperette levothyroxine 75 mcg tablet 75 mcg PO QPM 12/11/23 12/23/23 History lisinopril 20 mg tablet 20 mg PO QPM 12/11/23 12/23/23 History semaglutide 0.25 mg or 0.5 mg (2 0.5 mg subcut Q7D 12/11/23 12/23/23 History mg/3 mL) subcutaneous pen injector (Ozempic) timolol 0.5 % eye drops 1 drp ophthalmic (eye) HS 12/11/23 12/23/23 History venlafaxine 225 mg tablet,extended 225 mg PO QPM 12/11/23 12/23/23 History release 24 hr vitamin A-vitamin C-vit E-min 1 tab PO DAILY 12/11/23 12/23/23 History tablet (Ocutabs tablet) Patient History Medical History (Updated 12/23/23 @ 14:45 by Adrián Mckenzie PA-C) GERD (gastroesophageal reflux disease) infrequent Carotid artery stenosis high-grade stenosis (greater than 75%) involving the origin and proximal right internal carotid artery with focal near complete occlusion/trace flow. Hx of angiography [facility] History of COVID-19 09/2023, home test, not hosp; mild symptoms>resolved Anxiety and depression Hypothyroidism Diabetes mellitus, type 2 NIDDM Hyperlipidemia Hypertension controlled, stable per pt Glaucoma Surgical History Hx of hysterectomy Hx of colonoscopy Hx of cholecystectomy History of surgical procedure on eye proper using laser History of carotid endarterectomy left, prior to 2019, [facility] Social History Smoking Status: Never smoker Second Hand Exposure: No; Do You Dip or Chew Tobacco: No; Tobacco Cessation Education Requested by Patient: No Hx Alcohol Use: Yes Alcohol type: beer Hx Substance Use: No Preferred Language: Mosotho Communication Ability: Effective Printing Plate Clerk Required: No Beliefs That Will Affect Care: None Current Living Situation: Spouse Other Information That Helps Us Care for You: No Feels Safe at Home: Yes Safety Concerns: Feels Safe At This Time Assistive Devices: Denture - Upper, Denture - Lower, Glasses and Hearing Aid - Bilateral Review of Systems 2 Review of Systems: A complete 10 point review of systems was reviewed with the patient with pertinent positives and negatives as per history of present illness. All else were negative. Physical Exam 2 Physical Exam: VITAL SIGNS - Vital signs and nursing notes were reviewed. GENERAL - 83-year-old female appearing her stated age who is in no acute distress. Communicates well with provider and answers questions appropriately. SKIN - RIGHT sided lower neck incision site clean, dry, and intact. LEFT groin needle site clean, dry, and intact. HEAD - NC/AT. EYES - PERRL with EOMI bilaterally. EARS - No deformities of external structures noted on gross examination bilaterally. NOSE - Midline and without cyanosis. MOUTH/OROPHARYNX - Without perioral cyanosis. NECK - Skin as above. Neck with FROM. LUNGS - Chest wall symmetric without accessory muscle use, intercostals retractions, or central cyanosis. Normal vesicular breath sounds CTA B/L. No wheezes, rales, or rhonchi appreciated. CARDIAC - RRR with S1/S2. No murmur, rubs, or gallops appreciated. ABDOMEN - Abdominal contour obese without pulsations or visible masses. BS normoactive all four quadrants. No tenderness, palpable masses, hepatosplenomegaly, or ascites noted. EXTREMITIES - No clubbing or peripheral cyanosis. No pretibial edema present. +3/5 radial and dorsalis pedis pulses palpated throughout. +5/5 strength noted in UE/LE bilaterally. NEUROLOGIC - Cranial nerves II through XII grossly intact. PSYCH - A&Ox3 and cooperates fully with examiner. Pt is very pleasant and interacts well with examiner. Results & Data Results & Data Vital Signs (Past 12 Hours) Vital Signs Temp Pulse Resp BP BP Pulse Ox O2 Del Method 12/23/23 14:05 36.5 C 59 L 14 115/46 L 115/40 L 96 Room Air 12/23/23 13:55 50 L 12 80/40 L 85/32 L 95 Room Air 12/23/23 13:45 48 L 16 94/42 L 100/38 L 95 Oxymask 12/23/23 13:35 48 L 18 88/38 L 86/30 L 96 Oxymask 12/23/23 13:25 48 L 18 75/38 L 68/25 L 95 Oxymask 12/23/23 13:15 67 18 107/69 115/41 L 99 Oxymask 12/23/23 13:05 68 16 135/61 140/48 L 100 Oxymask 12/23/23 12:58 36.6 C 48 L 14 71/35 L 99 Oxymask 12/23/23 09:07 159/88 H 12/23/23 08:43 36.6 C 92 H 20 186/89 H 93 Room Air O2 Flow Rate 12/23/23 14:05 12/23/23 13:55 12/23/23 13:45 3 12/23/23 13:35 3 12/23/23 13:25 3 12/23/23 13:15 3 12/23/23 13:05 6 12/23/23 12:58 6 12/23/23 09:07 12/23/23 08:43 Laboratory Results 12/23/23 08:19 Coding Level of Care Code 10446 IN/OBS CONSULT LVL 4,60M Diagnoses Carotid artery disease I77.9 Diabetes mellitus, type 2 E11.9 Hypothyroidism E03.9 Hyperlipidemia E78.5 Hypertension I10 Glaucoma H40.9
[2023-12-23] MEDS: LACTATED RINGER'S 1,000 ML IV SCH (15:00)
[2023-12-23] MEDS ORDERED: CARBOHYDRATES FOR HYPOGLYCEMIA PO PRN (15:15)
[2023-12-23] MEDS ORDERED: DEXTROSE 50% 50 ML SYRINGE IV PRN (15:15)
[2023-12-23] MEDS ORDERED: GLUCAGON FOR INJ 1 MG VIAL IM PRN (15:15)
[2023-12-23] MEDS ORDERED: GLUCOSE 40% GEL 15 GM TUBE PO PRN (15:15)
[2023-12-23] MEDS ORDERED: GLUCOSE 10 TAB/TUBE PO PRN (15:15)
[2023-12-23] MEDS: NON-FORMULARY MEDICATION (Semaglutide [Ozempic] 0.25 mg or 0.5 mg (2 mg/3 mL) Pen Injector SQ SCH (15:22)
[2023-12-23] MEDS: ASPIRIN 81 MG CHEW PO STA (15:22)
[2023-12-23] MEDS ORDERED: STAT IV Infusion **Titration per Protocol STA (16:27)
[2023-12-23] MEDS: PHENYLEPHRINE/NSS 25 MG/250 ML BAG IV SCH (16:44)
[2023-12-23] MEDS: INSULIN ASPART PER UNIT CHARGE SC SCH (17:39)
[2023-12-23] MEDS: ceFAZolin 330 MG/ML 1 GM VIAL ONE (18:44)
[2023-12-23] MEDS: BUPIVACAINE/EPINEPHRINE 0.5% MPF 1:200,000 30 ML VIAL ONE (18:44)
[2023-12-23] MEDS: THROMBIN FOR SOLN 20000 UNIT KIT ONE (18:45)
[2023-12-23] MEDS: GELATIN SPONGE SZ 100 ONE (18:45)
[2023-12-23] MEDS: ASPIRIN 81 MG ECTAB PO ONE (18:49)
[2023-12-23] MEDS: ceFAZolin 2000MG 2,000 MG/15 ML SYR IV SCH (19:18)
[2023-12-23] MEDS: lisinopril 20 MG TAB PO SCH (20:01)
[2023-12-23] MEDS: LEVOTHYROXINE SODIUM 75 MCG TABLET PO SCH (20:42)
[2023-12-23] MEDS: CYANOCOBALAMIN (B-12) 500 MCG TABLET PO SCH (20:42)
[2023-12-23] MEDS: TICAGRELOR 90 MG TAB PO SCH (20:43)
[2023-12-23] MEDS: VENLAFAXINE HCL XR 75 MG CAPXR PO SCH (20:43)
[2023-12-23] MEDS: ASPIRIN 81 MG ECTAB PO SCH (20:43)
[2023-12-23] MEDS: ATORVASTATIN 40 MG TAB PO SCH (20:43)
[2023-12-23] MEDS: LATANOPROST 0.005% OP SOLN 2.5 ML BTL OP SCH (20:44)
[2023-12-23] MEDS ORDERED: CLOPIDOGREL BISULFATE 75 MG TAB PO SCH (21:00)
[2023-12-23] MEDS ORDERED: EMPAGLIFLOZIN 25 MG TAB PO SCH (21:00)
--- NOTE | 2023-12-24 07:12 | Pulmonology Progress Note ---
Date of Service December 24, 2023 Assessment & Plan (1) Carotid artery disease: (2) Diabetes mellitus, type 2: (3) Hypothyroidism: (4) Hyperlipidemia: (5) Hypertension: (6) Glaucoma: Plan Reason Critically Ill: 83-year-old female with a significant past medical history of diabetes, hypertension, hyperlipidemia, and carotid artery stenosis who successfully underwent RIGHT-sided TCAR procedure. Patient to be monitored in the ICU status post vascular intervention. NEURO - * CAM ICU: NEGATIVE * Monitor neurochecks per unit policy status post TCAR procedure. CARDIAC/VASCULAR - * Status post RIGHT-sided TCAR: * Monitor incision site for any changes. * Monitor for signs/symptoms of bleeding status post vascular intervention. * Management per vascular surgery. * Hypotension * Likely postprocedural * Continue with phenylephrine keep MAP greater than 65 * Monitor on telemetry. RESPIRATORY - * No history of pulmonary disease. * Saturating well on room air. GI/NUTRITION - * Progress diet as tolerated. RENAL/LYTES - * No significant electrolyte derangements. - * No immediate concerns at this time. ENDO - * DMII: * BSGs per unit protocol. ISS --> gtt per unit policy. * Hypothyroid: * Continue with home dosing. HEME - * Stable H&H. * Monitor for s/s bleeding s/p vascular intervention. ID - * No concern for infection. --Prophylaxis VTE: IPC GI: None Lines: Right radial, peripheral Diet: Cardiac Plan: In/out: +1.8 l, urine output 1450 Try to wean phenylephrine off Labs not done today Disposition as per vascular surgery Please note the above document was generated using voice recognition software. It may contain grammatical, syntax or spelling errors.Any formal questions or concerns about the content, text or information contained within the body of this dictation should be directly addressed to the provider for clarification. Admission and Anticipated Discharge Date Admission Date: December 23, 2023 Subjective Patient seen and examined at bedside. No acute distress, notable since overnight Phenylephrine has been off since early in the morning. Denies any headache today, no nausea or vomiting Fair appetite No difficulty swallowing No blurry vision. Review of Systems 2 Review of Systems: All systems reviewed & are unremarkable except as noted in Subjective Physical Exam 2 Physical Exam: Constitutional: No acute distress HEENT: EOMI, PERRLA, hard to hear, right TCAR incision Respiratory system: Good air entry bilaterally, no wheeze, no rhonchi, no crackles CVS: S1-S2 positive, no murmurs or gallops Abdomen: Soft, nontender, nondistended, positive bowel sounds x4 Extremities: +2 pulses bilaterally radialis/ dorsalis pedis, no cyanosis, no edema, obese Neuro: Awake alert oriented x3 Psych: Normal mood and affect G/U: No Hamilton Skin: no rashes, warm and dry Lymphatic: no cervical or axillary lymphadenopathy Results & Data Results & Data Vital Signs (Past 12 Hours) Vital Signs Temp Pulse Pulse Resp BP BP Pulse Ox 12/24/23 06:07 61 18 122/51 L 93 12/24/23 05:00 58 L 15 93 12/24/23 05:00 128/62 12/24/23 04:00 60 20 94 12/24/23 04:00 111/50 L 12/24/23 03:00 58 L 20 95 12/24/23 03:00 106/46 L 12/24/23 02:01 58 L 17 97 12/24/23 02:01 118/53 L 12/24/23 02:00 53 L 18 95 12/24/23 01:01 107/53 L 12/24/23 01:01 58 L 21 97 12/24/23 01:00 52 L 20 96 12/24/23 00:55 52 L 18 97 12/24/23 00:55 102/53 L 12/24/23 00:44 56 L 21 96 12/24/23 00:44 123/57 L 12/24/23 00:01 61 18 97 12/24/23 00:01 153/60 H 12/24/23 00:00 60 16 89 L 12/24/23 00:00 36.6 C 53 L 17 123/57 L 98 12/24/23 00:00 60 12/23/23 23:00 60 18 96 12/23/23 23:00 127/53 L 12/23/23 23:00 65 20 127/53 L 94 12/23/23 22:00 58 L 18 96 12/23/23 22:00 132/59 L 12/23/23 22:00 59 L 19 132/59 L 97 12/23/23 21:45 57 L 15 95 12/23/23 21:45 132/57 L 12/23/23 21:30 128/50 L 12/23/23 21:30 59 L 17 97 12/23/23 21:15 61 19 98 12/23/23 21:15 139/75 12/23/23 21:00 54 L 19 98 12/23/23 21:00 127/58 L 12/23/23 21:00 36.8 C 60 17 127/58 L 98 12/23/23 20:45 63 19 97 12/23/23 20:45 129/59 L 12/23/23 20:30 132/59 L 12/23/23 20:30 63 17 98 12/23/23 20:15 60 20 95 12/23/23 20:15 123/59 L 12/23/23 20:00 127/58 L 12/23/23 20:00 60 20 96 12/23/23 20:00 61 21 127/58 L 95 12/23/23 19:45 121/58 L 12/23/23 19:45 60 20 95 12/23/23 19:30 133/56 L 12/23/23 19:30 59 L 20 95 12/23/23 19:15 107/50 L 12/23/23 19:15 63 22 96 O2 Del Method 12/24/23 06:07 Room Air 12/24/23 05:00 12/24/23 05:00 12/24/23 04:00 12/24/23 04:00 12/24/23 03:00 12/24/23 03:00 12/24/23 02:01 12/24/23 02:01 12/24/23 02:00 12/24/23 01:01 12/24/23 01:01 12/24/23 01:00 12/24/23 00:55 12/24/23 00:55 12/24/23 00:44 12/24/23 00:44 12/24/23 00:01 12/24/23 00:01 12/24/23 00:00 12/24/23 00:00 Room Air 12/24/23 00:00 12/23/23 23:00 12/23/23 23:00 12/23/23 23:00 Room Air 12/23/23 22:00 12/23/23 22:00 12/23/23 22:00 Room Air 12/23/23 21:45 12/23/23 21:45 12/23/23 21:30 12/23/23 21:30 12/23/23 21:15 12/23/23 21:15 12/23/23 21:00 12/23/23 21:00 12/23/23 21:00 Room Air 12/23/23 20:45 12/23/23 20:45 12/23/23 20:30 12/23/23 20:30 12/23/23 20:15 12/23/23 20:15 12/23/23 20:00 12/23/23 20:00 Room Air 12/23/23 20:00 Room Air 12/23/23 19:45 12/23/23 19:45 Room Air 12/23/23 19:30 12/23/23 19:30 12/23/23 19:15 12/23/23 19:15 Laboratory Results 12/23/23 08:19 PG Care Time/CCT Total # of Minutes Spent Total Time Spent with Patient: Total time spent is greater than 50% in coordination of care (as documented) at patient's floor/unit and/or counseling patient: Coding Level of Care Code 26643 SUB INP/OBS CARE 2/35MIN Diagnoses Carotid artery disease I77.9 Diabetes mellitus, type 2 E11.9 Hypothyroidism E03.9 Hyperlipidemia E78.5 Hypertension I10 Glaucoma H40.9
[2023-12-24] MEDS: TIMOLOL MALEATE 0.5% OP SOLN 5 ML BTL OP SCH (08:31)
[2023-12-24] MEDS: MULTIVITAMIN TAB PO SCH (08:31)
--- NOTE | 2023-12-24 13:08 | Surgery Progress Note ---
Date of Service December 24, 2023 Assessment & Plan (1) Carotid artery disease: Plan: Pt now POD #1 after R TCAR. Doing well post op. Discussed with Dr Carvajal. d/c pt home today. Will see pt in office in 2 weeks. Admission and Anticipated Discharge Date Admission Date: December 23, 2023 Subjective 83yo f POD #1 after R TCAR, seen in f/u today. Pt states mild pain R neck incision, and mild fatigue and sore throat. Denies any other complaints. Taking PO well and voiding independently Review of Systems Review of Systems: All systems reviewed & are unremarkable except as noted in HPI & below Physical Exam Constitutional: WD/WN, vitals as above cooperative and comfortable; not in distress ENMT: Ears: no hearing impairment Neck: no anterior neck swelling R supraclavicular incision C/D/I, mild local ecchymosis and tenderness and swelling. Respiratory: normal respiratory effort, lungs clear to auscultation Auscultation: + diminished lung sounds Cardiovascular: Rate/Rhythm: regular rate and regular rhythm Vessels: femoral pulses present, posterior tibial pulses present, dorsalis pedis pulses present and radial pulses present; + abnormal peripheral pulses Extremities: normal capillary refill; no edema Gastrointestinal (Abdomen): Inspection/Auscultation: abdomen normal to inspection and normal bowel sounds Percussion/Palpation: abdomen soft; abdomen nontender Musculoskeletal: no cyanosis or clubbing, extremities motor strength 5/5 Skin: no rashes, warm and dry Neurologic: moves all extremities and awake; no focal motor deficits and not confused Psychiatric: A+Ox3, euthymic affect Results & Data Vital Signs (Past 12 Hours) Vital Signs Pulse Resp BP Pulse Ox O2 Del Method 12/24/23 12:45 74 23 97 12/24/23 12:45 133/68 12/24/23 12:30 145/78 H 12/24/23 12:30 70 20 97 12/24/23 12:15 61 19 97 12/24/23 12:15 128/73 12/24/23 12:00 65 11 L 98 12/24/23 12:00 121/61 12/24/23 11:46 70 13 98 12/24/23 11:46 113/55 L 12/24/23 11:45 62 17 98 12/24/23 11:30 64 24 96 12/24/23 11:30 135/82 12/24/23 11:15 62 10 L 95 12/24/23 11:15 116/70 12/24/23 11:00 60 18 96 12/24/23 11:00 116/54 L 12/24/23 10:45 112/53 L 12/24/23 10:45 59 L 20 95 12/24/23 10:30 106/55 L 12/24/23 10:30 58 L 21 95 12/24/23 10:15 101/57 L 12/24/23 10:15 59 L 16 96 12/24/23 10:00 61 23 97 12/24/23 10:00 118/56 L 12/24/23 09:45 113/52 L 12/24/23 09:45 60 23 96 12/24/23 09:30 102/54 L 12/24/23 09:30 57 L 21 96 12/24/23 09:15 107/51 L 12/24/23 09:15 60 22 94 12/24/23 09:00 121/60 12/24/23 09:00 63 21 94 12/24/23 08:45 105/62 12/24/23 08:45 68 20 93 12/24/23 08:30 107/63 12/24/23 08:30 77 21 94 12/24/23 08:23 84 21 96 12/24/23 08:23 146/70 H 12/24/23 08:18 96 12/24/23 08:00 133/66 12/24/23 08:00 86 21 92 12/24/23 08:00 Room Air 12/24/23 08:00 77 12/24/23 07:45 67 17 94 12/24/23 07:45 114/62 12/24/23 07:31 93 H 22 94 12/24/23 07:31 114/96 12/24/23 07:30 80 18 94 12/24/23 07:15 66 18 95 12/24/23 07:15 127/61 12/24/23 07:00 139/61 12/24/23 07:00 60 21 92 12/24/23 06:45 67 23 93 12/24/23 06:30 79 17 92 12/24/23 06:15 59 L 20 92 12/24/23 06:07 61 18 122/51 L 93 Room Air 12/24/23 06:00 67 20 93 12/24/23 06:00 122/51 L 12/24/23 05:45 66 20 91 12/24/23 05:30 60 22 93 12/24/23 05:15 61 19 93 12/24/23 05:00 58 L 15 93 12/24/23 05:00 128/62 12/24/23 04:00 60 20 94 12/24/23 04:00 111/50 L 12/24/23 03:00 58 L 20 95 12/24/23 03:00 106/46 L 12/24/23 02:01 58 L 17 97 12/24/23 02:01 118/53 L 12/24/23 02:00 53 L 18 95
--- NOTE | 2023-12-24 14:31 | Discharge Summary ---
Date of Service December 24, 2023 Admission HPI Per Admitting Provider Name: SANGEETHA ALAS Patient Number: [id number] : 1940 Date of Service: 12/10/2023 Chief Complaint: _Follow-up for carotid stenosis HPI: _Mrs. Alas is an elderly female who presents to Dr. Bertrand vascular surgery clinic today for follow-up appointment after undergoing a CTA of her neck to evaluate her carotid disease. She has a remote history of undergoing a left carotid endarterectomy, and recently had a routine surveillance carotid ultrasound which indicated severe stenosis of her right ICA that had been undiagnosed. She was sent for CTA to better evaluate and returns today for those findings. She continues to deny any symptoms of cerebrovascular insufficiency including amaurosis, extremity weakness numbness or tingling, difficulty speaking or swallowing, facial droop, sudden onset confusion, other complaints. 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 Current Home Meds: (Last Updated 12/10 14:38) aspirin (aspirin 81 mg oral delayed release tablet) 81 mg PO Daily atorvastatin (atorvastatin 40 mg oral tablet) 40 mg PO Daily cholecalciferol (Vitamin D3 1250 mcg (50,000 intl units) oral capsule) 1,250 mcg PO q7days clopidogrel (Plavix 75 mg oral tablet) 1 tab PO Daily empagliflozin (Jardiance 25 mg oral tablet) 25 mg PO Daily latanoprost ophthalmic (latanoprost 0.005% ophthalmic solution) 1 drop both eyes qhs Store intact bottles under refrigeration. Once opened, the container may be stored at room temperature for 6 weeks. Gerardo Crook 06/26 10:12 levothyroxine (levothyroxine 75 mcg (0.075 mg) oral tablet) 75 mcg PO Daily TAKE 1 TABLET BY MOUTH ONCE DAILY lisinopril (lisinopril 20 mg oral tablet) TAKE 1 TABLET BY MOUTH ONCE DAILY multivitamin with minerals (Ocuvite oral tablet) 1 tab PO Daily pantoprazole (pantoprazole 20 mg oral delayed release tablet) PRN: dyspepsia TAKE 1 TABLET BY MOUTH ONCE DAILY semaglutide (Ozempic (0.25 mg or 0.5 mg dose) 2 mg/3 mL subQ pen) subQ q7days Inject 0.25 mg every 7 days X 4 weeks then increase to 0.5 mg SQ every 7 days. ticagrelor (Brilinta (ticagrelor) 90 mg oral tablet) 90 mg PO bid timolol ophthalmic (timolol maleate 0.25% ophthalmic solution) 1 drop right eye bid venlafaxine (venlafaxine 150 mg oral capsule, extended release) 150 mg PO Daily venlafaxine (venlafaxine 75 mg oral capsule, extended release) 75 mg PO Daily vitamin E (vitamin E 200 intl units oral capsule) 200 Int_Unit PO Daily Allergies and Sensitivities: NKA Past Medical History: Problems: Carotid stenosis Aortoiliac stenosis Peripheral arterial disease OBJECTIVE Vitals: Last Updated 12/10/23 13:53 Date Temp BP Location Pulse RR SpO2 Pain 12/10/23 0 12/10/23 122/62 Right Arm 57 95 11/11/23 118/70 Left Arm 89 98 0 Vital Signs are the last 3 documented. No Orthostatic Data Available Height and Weight: Last Updated 06/26/23 10:28 Date BMI Wt(kg) Wt(lb) Method Ht(cm) (ft-in) Method 06/26/23 73.8 162 Standing Scale Heights and Weights are the last 3 documented. Physical Exam Constitutional: In general patient is a healthy-appearing well-nourished well- developed elderly female no distress. She is alert and oriented without any focal deficits. Her head is normocephalic and atraumatic. Her carotids do not demonstrate significant bruit. Her heart is regular, her lungs are decreased lightly but clear. ASSESSMENT: _ PLAN: _ 1 ) _carotid stenosis Patient is essentially asymptomatic from her carotid disease, however she does have a near occlusion of her right ICA which does put her at a significantly increased risk of having a CVA. Due to the findings on CTA, Dr. Bertrand recommends the patient consider undergoing a surgical intervention. We did discuss the options of carotid endarterectomy versus transcarotid artery revascularization, including the risks and benefits and alternatives of each. Patient elects to proceed with a right TCAR. The procedure risks benefits and a lternatives were discussed at length with the patient. Her was also present. Patient expresses understanding and agreement to proceed. Patient has been taking Plavix for the past month, as prescribed by Dr. Bertrand, however, she underwent platelet function testing which demonstrated nonresponse to clopidogrel. We will change this medication to Brilinta 90 mg twice daily in preparation for her upcoming procedure. We discussed with the patient that she must take her 81 mg aspirin, Brilinta, and statin medications for at least 1 year postoperatively. We will have her undergo an echocardiogram, although the patient has no significant cardiac history. Patient is advised to call our office if she has any further questions. She is agreeable to this plan. Thank you for letting us participate in the care of this patient. I have personally spent_38__ minutes performing [id number] and [id number] activities on this date of service.Time does not include separately reported services. Activities Include: _x_ review of the medical record _x_ obtaining a history _x_ physical exam/evaluation x__ review labs _x_ review radiology reports _x_ counseling/educating patient/family/caregiver __ discussion/referral to other healthcare professional x__ documenting care in the medical record __ independent interpretation of results _x_ communication of results to patient/family/caregiver _x_ coordination of care Signature Line Electronic Signature on File CC: Jorden Villegas MD [address] [facility] [id number] * Electronically Reviewed/Signed by: Marilyn Lockhart PA-C Author Signature Dt/Tm:12/10/2023 03:53 PM [facility] [place], [address] [place] [address] LM Result Type: HVI Outpt Note Date of Service: December 10, 2023 15:40 EST Authorization Status: Final Author or Import Date: ALONA Lockhart Lynn on December 10, 2023 15:53 EST Verified By: ALONA Lockhart Lynn on December 10, 2023 15:53 EST Encounter info: [id number], [place] [address], Clinic, 12/10/2023 - 12/10/2023 Admission Exam Per Admitting Provider Constitutional: In general patient is a healthy-appearing well-nourished well- developed elderly female no distress. She is alert and oriented without any focal deficits. Her head is normocephalic and atraumatic. Her carotids do not demonstrate significant bruit. Her heart is regular, her lungs are decreased lightly but clear. Principal Diagnosis 1. s/p R TCAR 2. R ICA stenosis Discharge Exam Constitutional WD/WN, vitals as above cooperative and comfortable; not in distress ENMT Ears: no hearing impairment Neck no anterior neck swelling Respiratory normal respiratory effort, lungs clear to auscultation Auscultation: + diminished lung sounds Cardiovascular Rate/Rhythm: regular rate and regular rhythm Vessels: femoral pulses present, posterior tibial pulses present, dorsalis pedis pulses present and radial pulses present; + abnormal peripheral pulses Extremities: normal capillary refill; no edema Gastrointestinal (Abdomen) Inspection/Auscultation: abdomen normal to inspection and normal bowel sounds Percussion/Palpation: abdomen soft; abdomen nontender Musculoskeletal no cyanosis or clubbing, extremities motor strength 5/5 Skin no rashes, warm and dry Neurologic moves all extremities and awake; no focal motor deficits and not confused Psychiatric A+Ox3, euthymic affect Discharge Data Allergies Allergy/AdvReac Type Severity Reaction Status Date / Time No Known Allergies Allergy Verified 12/23/23 08:38 Consultations 12/23/23 14:26 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 Doing well post op. Discussed with Dr Bertrand. d/c pt home today. Will see pt in office in 2 weeks. Total Time Total Time Spent Total Time Spent (In Minutes): 0 Discharge Plan Discharge Items Patient Disposition: Home - Self-Care Reason For Visit: Right Carotid Artery Stenosis Discharge Diagnosis: 1. s/p R TCAR 2. R ICA stenosis Activity: Per Instructions section Non-emergency contact: Primary Care Provider and Surgeon Call non-emergency contact if: you have any medication questions, your pain is not controlled, your pain is concerning for you, you have a fever, your wound has increased redness and your wound has increased drainage Follow-up/Referrals: Jorden Villegas [Primary Care Provider] - 12/27/23 1:20 pm (Follow up with your PCP within 2 weeks Scheduled for 12/27/23 at 1:20 pm with JORGITO Garrett) Ricco Bertrand MD [Physician] - 01/09/24 1:00 pm (Follow up with Dr Bertrand or Marilyn Lockhart PA-C, in 2 weeks Scheduled for 01/09/24 at 1:00 pm with Marilyn Nye PA-C) Diet: Carb Consistent or DM2 and Heart Healthy Addtl Attending Provider Instructions: SPECIAL CARE INSTRUCTIONS: Medications: * Continue to take Aspirin, brilinta, and statin medications as directed. DO NOT STOP THESE MEDICATIONS WITHOUT SPEAKING TO DR BERTRAND'S OFFICE Incision Care: * You may shower, but do not rub incision. You may let the warm soapy water run over it. Be sure to dry the incision well after bathing. * Do not shave directly over the incision until it is healed. * DO NOT IMMERSE THE INCISION IN A TUB/POOL/etc. UNTIL HEALED. Restrictions: * Do not drive for at least one week or if you are still taking any narcotic pain medication. * Do not lift anything heavier than a gallon of milk for one week after going home. Possible Complications: * Numbness - It is normal to have some numbness around the incision. Numbness can extend beyond the incision to areas of the neck, ear and face. The numbness is due to bruising of nerves during the surgery and will gradually improve over a period of months. * Hoarseness/Difficulty Speaking and Swallowing - The bruising of nerves in the neck can also cause a hoarse voice, difficulty speaking or swallowing. This may improve over time, HOWEVER, if it continues for more than a few days please contact our office ([phone]). * Excessive Swelling - There will be some swelling immediately after surgery which usually resolves within one week. If you notice that the swelling is getting worse, notify your surgeon ([phone]). * Drainage/Bleeding - If there is any drainage or bleeding, it should be a very small amount (less than a teaspoon per day). If you have excessive bleeding or drainage from the incision, call your surgeon ([phone]) right away. ACTIVATION OF EMERGENCY MEDICAL SYSTEM: Call 911, immediately, if you experience any of the following: Warning Signs and Symptoms of Stroke: * Sudden numbness or weakness of the face, arm or leg, especially on one side of the body * Sudden confusion, trouble speaking or understanding * Sudden trouble seeing in one or both eyes * Sudden trouble walking, dizziness, loss of balance or coordination * Sudden severe headache with no cause Do not delay calling 911 if you experience any warning signs or symptoms of a stroke. Delay in seeking medical attention may affect what treatments can be given to you. Risk Factors for Stroke: You can reduce your chances of stroke by working with your medical provider to adopt a healthy lifestyle. Some specific ways to lower your chance of stroke are: * If you are a smoker, now is the time to stop smoking cigarettes * If you are diabetic, improve the control of your blood sugars * Avoid excessive amounts of alcohol * Control high blood pressure * Lose weight if you are overweight * Be sure to lead an active lifestyle * Eat a healthy diet low in salt, cholesterol and fat You should know about other risk factors for stroke that you are unable to control. These include: * Age 55 years or older * Male gender * Certain racial groups: , or / * Family History of Stroke, Mini stroke or Heart Attack * Sickle Cell Disease You will be receiving a call from the Vascular Surgery Nurse after you are discharged. FOLLOW UP VISIT: It is important for you to keep your follow up appointments with your medical provider. Keep any scheduled doctor appointments. Pending Studies at Discharge: No Stand-Alone Forms: [facility], Smoking Cessation Medications and DC Order Prescriptions: New tramadol 50 mg tablet 50 mg PO BID PRN (Reason: pain) Qty: 20 0RF Continued atorvastatin 40 mg Tablet 40 mg PO HS lisinopril 20 mg Tablet 20 mg PO QPM Patient Comments: noon cyanocobalamin (vitamin B-12) [Vitamin B-12] 1,000 mcg Tablet 1,000 mcg PO QPM Patient Comments: noon levothyroxine 75 mcg Tablet 75 mcg PO QPM Patient Comments: noon timolol 0.5 % Drops 1 drp OPHTHALMIC (EYE) HS Ocutabs Tablet 1 tab PO DAILY cholecalciferol (vitamin D3) 1,250 mcg (50,000 unit) Capsule 125 mcg PO Q7D venlafaxine 225 mg Tablet Extended Release 24hr 225 mg PO QPM Jardiance 25 mg Tablet 25 mg PO QPM Patient Comments: noon aspirin 81 mg Capsule 81 mg PO QPM Patient Comments: noon latanoprost (PF) 0.005 % Dropperette 1 drp OPHTHALMIC (EYE) QAM Rx Instructions: bilateral eyes Brilinta 1 tab PO BID Ozempic 0.25 mg or 0.5 mg (2 mg/3 mL) Pen Injector 0.5 mg SUBCUT Q7D Patient Comments: mondays Discontinued clopidogrel 75 mg Tablet 75 mg PO QPM Patient Comments: noon; will be stopping this med as of 12/10/23, will start Brillinta Discharge Orders: Discharge Order (Routine); Ordered 12/24/23 Ordered By: Marilyn Becerra/Other Patient Handouts: TCAR, Carotid Artery Disease Admission Data Admit Date/Time: 12/23/23 09:28 Attending Provider: Ricco Bertrand Admit Provider: Ricco Bertrand Primary Care Provider: Jorden Villegas Other Providers: Daryl Norris; Adrián Mckenzie; Siva Knott; Maldonado Huitron; Clem Stevens Muqueet; Lalo Barroso; Kristie Alvarenga; Jennifer Mark; Saul York; Sarmad Nieves; Vilma Youssef Other Interventions: Discharge Summary Assessment (RN) Last Done: 12/24/23 14:05
[2023-12-25] MEDS ORDERED: CHOLECALCIFEROL 125 MCG (5,000 UNITS) TAB PO SCH (09:00)
== END 2023-12-24 15:05 | disposition home health service (06) | DRG 36 ==
LOC: ASU 07:56 → 1E 09:28
PROC: EV.TCAR (2023-12-23 10:05)
DX: I70.8 Atherosclerosis of other arteries; H40.9 Unspecified glaucoma; I10 Essential (primary) hypertension; Z86.16 Personal history of COVID-19; I95.81 Postprocedural hypotension; Z79.890 Hormone replacement therapy; I65.21 Occlusion and stenosis of right carotid artery; E78.5 Hyperlipidemia, unspecified; E11.51 Type 2 diabetes mellitus with diabetic peripheral angiopathy without gangrene; I70.0 Atherosclerosis of aorta; E03.9 Hypothyroidism, unspecified